=== PATIENT | female | born 1935 | race Asian ===

== ENCOUNTER 2019-12-10 15:19 | Emergency (ER) | payer MEDICAID ==
[~2019-12-10] VITALS: Ht 147.3 cm; Wt 43.1 kg
[2019-12-10 15:41] VITALS: BP_SYST 178
--- NOTE | 2019-12-10 15:44 | NUR ---
Placed in room 1 . Placed on ekg monitor tech, blood pressure machine and pulse oximeter. To gown for exam. Side rails up. Report given to AKASH Sanches.
--- NOTE | 2019-12-10 16:00 | NUR ---
Pt came to ER for SOB in the morning, has hx of CHF, pt VSS, uses 2L O2 at home no distress at this time.
[2019-12-10] MEDS ORDERED: SACU1TAB PO (16:04)
[2019-12-10] MEDS ORDERED: FURO40TA5 PO (16:04)
[2019-12-10] MEDS ORDERED: POTA8CAP20 PO (16:04)
[2019-12-10] MEDS ORDERED: COR6.25 PO (16:04)
[2019-12-10] MEDS ORDERED: RIVA20TA PO (16:04)
--- NOTE | 2019-12-10 16:04 | NUR ---
Medication reconciliation completed with information provided by patient's son. Any prior medication reconciliation on file was reviewed and corrected.
--- NOTE | 2019-12-10 16:10 | NUR ---
ER at bedside examining patient.
[2019-12-10] MEDS ORDERED: FUROSEMIDE 100 MG/10 ML VIAL IVP ONE (16:15)
[2019-12-10 16:23] LABS: BASOPHILS % (AUTO) 0.4 % (0.0-2.0); EOSINOPHILS % (AUTO) 0.7 % (0.0-4.0); LYMPHOCYTES # (AUTO) 1.2 K/uL (1.0-5.5); LYMPHOCYTES % (AUTO) 18.4 % (20.5-51.5); MEAN CORPUSCULAR HEMOGLOBIN 26 pg (27-31); MEAN CORPUSCULAR HGB CONC 33 % (32-36); MEAN CORPUSCULAR VOLUME 79 fL (79.0-98.0); MONOCYTES # (AUTO) 0.5 K/uL (0.0-1.0); MONOCYTES % (AUTO) 7.9 % (1.7-9.3); NEUTROPHILS # (AUTO) 4.9 K/uL (1.8-7.7); NEUTROPHILS % (AUTO) 72.6 % (40.0-70.0); PLATELET COUNT (AUTO) 174 K/uL (130-430); RED BLOOD CELL COUNT(AUTO) 2.35 MIL/uL (4.2-6.2); RED CELL DISTRIBUTION WIDTH 17.7 % (9.0-15.0); WHITE BLOOD COUNT (AUTO) 6.7 K/uL (4.8-10.8)
[2019-12-10 16:32] LABS: HEMATOCRIT 18.7 % (36-48); HEMOGLOBIN 6.1 g/dL (12.0-16.0)
[2019-12-10 16:33] LABS: ANION GAP 4 (5-15); CHLORIDE 102 mmol/L (98-107); CREATININE 0.95 mg/dL (0.55-1.30); GLUCOSE 148 mg/dL (70-99); POTASSIUM 4.3 mmol/L (3.5-5.1); SODIUM SERUM 134 mmol/L (136-145); UREA NITROGEN, BLOOD 26 mg/dL (8-21)
[2019-12-10 16:43] LABS: ALANINE AMINOTRANSFERASE 21 U/L (12-78); ALBUMIN 3.1 g/dL (3.4-4.8); ASPARTATE AMINOTRANSFERASE 21 U/L (10-37); TOTAL BILIRUBIN 0.3 mg/dL (0.0-1.0)
--- NOTE | 2019-12-10 17:00 | NUR ---
Left messages at 2 different numbers on file for pt's family regarding blood transfusion consent.
[2019-12-10 17:09] LABS: INR 1.8 (0.8-1.2); PROTHROMBIN TIME 17.6 SECS (9.5-12.5)
[2019-12-10] MEDS ORDERED: PANTOPRAZOLE SODIUM 40 MG/VIAL (PROTONIX) IVP ONE (17:15)
[2019-12-10 18:00] VITALS: BP_SYST 152
--- NOTE | 2019-12-10 18:47 | NUR ---
Pt resting in [facility], at this time able to transfer to bedside commode
--- NOTE | 2019-12-10 19:30 | NUR ---
received report from AKASH Sanches for continuation of care.
[2019-12-11] MEDS ORDERED: FUROSEMIDE 40 MG/4 ML VIAL IVP SCH (09:00)
--- NOTE | 2019-12-11 18:33 | NUR ---
[employer] P[employer]WORK
== END 2019-12-10 23:40 | disposition short-term general hospital (02) ==
LOC: SED 15:19 → STU 18:30 → UNDOADMIN 18:30 → SED 23:40
DX: D64.9 Anemia, unspecified (principal)
CPT/HCPCS: 36415; 71045; 80053; 83880; 84484; 85025; 85610; 86886; 86900; 86901; 86920; 93005; 96374; 96375; 99291; C9113; J1940; 99285

== ENCOUNTER 2021-12-30 17:52 | Inpatient (IN) | payer MEDICAID ==
[~2021-12-30] VITALS: Ht 154.9 cm; Wt 53.5 kg
[~2021-12-30 17:52] MED LIST: COR6.25 PO; FURO40TA5 PO; POTA8CAP20 PO; RIVA20TA PO; SACU1TAB PO
[2021-12-30 18:09] VITALS: BP_SYST 144
[2021-12-30] MEDS ORDERED: ALBUTEROL SULFATE 0.083% 2.5 MG/3 ML VIAL.NEB INH ONE (18:30)
[2021-12-30] MEDS ORDERED: IPRATROPIUM BROM 0.5 MG/2.5 ML VIAL.NEB (ATROVENT) INH ONE (18:30)
[2021-12-30 18:57] LABS: HEMOGLOBIN 9.3 g/dL (12.0-16.0)
[2021-12-30 19:02] LABS: BILIRUBIN,URINE NEGATIVE (NEGATIVE); BLOOD, URINE NEGATIVE (NEGATIVE); CLARITY/URINE CLEAR (CLEAR); COLOR,URINE YELLOW (YELLOW); GLUCOSE,URINE NEGATIVE (NEGATIVE); KETONES,URINE NEGATIVE (NEGATIVE); LEUKOCYTE ESTERASE ,URINE NEGATIVE (NEGATIVE); NITRITE, URINE NEGATIVE (NEGATIVE); PH,URINE 5.5 (5.0-8.0); PROTEIN URINE 2+ (NEGATIVE); UROBILINOGEN,URINE 0.2 (0.2-1.0)
[2021-12-30 19:04] LABS: HEMATOCRIT 29.3 % (36-48); MEAN CORPUSCULAR HEMOGLOBIN 25 pg (27-31); MEAN CORPUSCULAR HGB CONC 32 % (32-36); MEAN CORPUSCULAR VOLUME 79 fL (79.0-98.0); PLATELET COUNT (AUTO) 197 K/uL (130-430); RED BLOOD CELL COUNT(AUTO) 3.73 MIL/uL (4.2-6.2); RED CELL DISTRIBUTION WIDTH 17.1 % (9.0-15.0); WHITE BLOOD COUNT (AUTO) 14.1 K/uL (4.8-10.8)
[2021-12-30 19:12] LABS: ANION GAP 2 (5-15); CHLORIDE 101 mmol/L (98-107); CREATININE 1.13 mg/dL (0.55-1.30); GLUCOSE 161 mg/dL (70-99); POTASSIUM 4.7 mmol/L (3.5-5.1); UREA NITROGEN, BLOOD 39 mg/dL (8-21)
[2021-12-30] MEDS ORDERED: PIPERACILLIN/TAZO 4.5GM/DEX-IS 100 ML IV SCH (19:15)
[2021-12-30 19:16] LABS: ALANINE AMINOTRANSFERASE 31 U/L (12-78); ALBUMIN 3.3 g/dL (3.4-4.8); ASPARTATE AMINOTRANSFERASE 28 U/L (10-37); TOTAL BILIRUBIN 0.4 mg/dL (0.0-1.0)
[2021-12-30] MEDS ORDERED: PIPERACILLIN/TAZO 4.5GM/DEX-IS 100 ML IV ONE (19:18)
[2021-12-30 19:36] LABS: BACTERIA,URINE FEW /HPF (None Seen); MUCUS,URINE None Seen /LPF (None Seen); RBC,URINE NONE SEEN /HPF (0-3); WBC,URINE NONE SEEN /HPF (0-3)
[2021-12-30 19:38] LABS: ATYPICAL LYMPHOCYTES % 20 % (0-0); BAND % (MANUAL) 2 % (0-6); BASOPHILS % (MANUAL) 0 % (0-2); EOSINOPHILS % (MANUAL) 1 % (0-7); LYMPHOCYTES % (MANUAL) 48 % (20-46); MONOCYTES % (MANUAL) 5 % (0-11)
[2021-12-30] MEDS ORDERED: VANCOMYCIN HCL 1,000 MG in NS 250 ML IV ONE (20:00)
[2021-12-30] MEDS ORDERED: VANCOMYCIN HCL 1000 MG/VIAL IV ONE (20:05)
[2021-12-30] MEDS ORDERED: NEU300 PO (20:40)
[2021-12-30] MEDS ORDERED: DOXY100C PO (20:41)
[2021-12-30] MEDS ORDERED: GUAI-723 PO (20:42)
[2021-12-30] MEDS ORDERED: POTA10TA PO (20:51)
[2021-12-30] MEDS ORDERED: ACET-73 PO (20:52)
[2021-12-30] MEDS ORDERED: AMLO2.5T50 PO (20:53)
[2021-12-30] MEDS ORDERED: LORazepam 2 MG/ML VIAL IVP PRN (21:00)
[2021-12-30 22:00] VITALS: BP_SYST 128
[2021-12-30] MEDS ORDERED: NALOXONE HCL 0.4 MG/ML AMP (NARCAN) IVP PRN (22:15)
[2021-12-30] MEDS ORDERED: MORPHINE 4 MG INJ. 4 MG/ML VIAL IVP PRN (22:15)
[2021-12-30] MEDS ORDERED: MORPHINE 2 MG/ML INJ. SYRINGE IVP PRN (22:15)
[2021-12-30] MEDS ORDERED: ONDANSETRON HCL 4 MG/2 ML VIAL IVP PRN (22:15)
[2021-12-30 22:17] VITALS: BP_SYST 123
[2021-12-30 23:00] VITALS: BP_SYST 124
[2021-12-30] MEDS: D5/0.45 NS 1,000 ML IV SCH (23:06)
[2021-12-30] MEDS: ALBUTEROL SULFATE 0.083% 2.5 MG/3 ML VIAL.NEB INH SCH (23:10)
[2021-12-30] MEDS: IPRATROPIUM BROM 0.5 MG/2.5 ML VIAL.NEB (ATROVENT) INH SCH (23:10)
[2021-12-31] VITALS (15 sets, daily range): BP systolic 114–143
[2021-12-31] MEDS: IPRATROPIUM BROM 0.5 MG/2.5 ML VIAL.NEB (ATROVENT) INH SCH ×6 (02:50→23:59)
[2021-12-31] MEDS: ALBUTEROL SULFATE 0.083% 2.5 MG/3 ML VIAL.NEB INH SCH ×6 (02:50→23:58)
[2021-12-31 07:02] LABS: ANION GAP 2 (5-15); CALCIUM 8.2 mg/dL (8.4-11.0); CHLORIDE 103 mmol/L (98-107); GLUCOSE 142 mg/dL (70-99); PHOSPHORUS 4.3 mg/dL (2.7-4.5); POTASSIUM 4.7 mmol/L (3.5-5.1); UREA NITROGEN, BLOOD 36 mg/dL (8-21)
[2021-12-31 07:05] LABS: BASOPHILS % (AUTO) 0.1 % (0.0-2.0); HEMATOCRIT 27.3 % (36-48); HEMOGLOBIN 8.6 g/dL (12.0-16.0); LYMPHOCYTES # (AUTO) 5.1 K/uL (1.0-5.5); LYMPHOCYTES % (AUTO) 44.8 % (20.5-51.5); MEAN CORPUSCULAR HEMOGLOBIN 26 pg (27-31); MEAN CORPUSCULAR HGB CONC 32 % (32-36); MEAN CORPUSCULAR VOLUME 80 fL (79.0-98.0); MONOCYTES # (AUTO) 1.1 K/uL (0.0-1.0); MONOCYTES % (AUTO) 9.3 % (1.7-9.3); NEUTROPHILS # (AUTO) 5.2 K/uL (1.8-7.7); PLATELET COUNT (AUTO) 183 K/uL (130-430); RED CELL DISTRIBUTION WIDTH 16.9 % (9.0-15.0); WHITE BLOOD COUNT (AUTO) 11.4 K/uL (4.8-10.8)
[2021-12-31 08:12] LABS: NEUTROPHILS % (AUTO) 45.8 % (40.0-70.0)
[2021-12-31] MEDS ORDERED: FUROSEMIDE 40 MG/4 ML VIAL IVP ONE (10:00)
[2021-12-31] MEDS: D5/0.45 NS 1,000 ML IV SCH (17:46)
[2021-12-31] MEDS: FUROSEMIDE 40 MG/4 ML VIAL IVP SCH (20:27)
[2022-01-01 00:14] VITALS: BP_SYST 126
[2022-01-01] MEDS: IPRATROPIUM BROM 0.5 MG/2.5 ML VIAL.NEB (ATROVENT) INH SCH ×6 (04:43→23:27)
[2022-01-01] MEDS: ALBUTEROL SULFATE 0.083% 2.5 MG/3 ML VIAL.NEB INH SCH ×6 (04:43→23:27)
[2022-01-01 08:00] VITALS: BP_SYST 145
[2022-01-01] MEDS: FUROSEMIDE 40 MG/4 ML VIAL IVP SCH ×2 (08:40→21:12)
[2022-01-01 10:32] LABS: ALANINE AMINOTRANSFERASE 28 U/L (12-78); ALBUMIN 2.8 g/dL (3.4-4.8); ANION GAP 4 (5-15); ASPARTATE AMINOTRANSFERASE 29 U/L (10-37); C-REACTIVE PROTEIN QUANT 7.3 mg/dL (0-0.5); CALCIUM 8.4 mg/dL (8.4-11.0); CHLORIDE 99 mmol/L (98-107); CREATININE 1.15 mg/dL (0.55-1.30); GLUCOSE 147 mg/dL (70-99); POTASSIUM 3.4 mmol/L (3.5-5.1); TOTAL BILIRUBIN 0.7 mg/dL (0.0-1.0); UREA NITROGEN, BLOOD 33 mg/dL (8-21)
[2022-01-01 10:43] LABS: BASOPHILS % (AUTO) 0.2 % (0.0-2.0); EOSINOPHILS % (AUTO) 0.4 % (0.0-4.0); HEMATOCRIT 27.6 % (36-48); LYMPHOCYTES % (AUTO) 45.9 % (20.5-51.5); MEAN CORPUSCULAR HEMOGLOBIN 26 pg (27-31); MEAN CORPUSCULAR HGB CONC 33 % (32-36); MEAN CORPUSCULAR VOLUME 78 fL (79.0-98.0); MONOCYTES # (AUTO) 0.7 K/uL (0.0-1.0); MONOCYTES % (AUTO) 8.5 % (1.7-9.3); NEUTROPHILS # (AUTO) 3.9 K/uL (1.8-7.7); PLATELET COUNT (AUTO) 172 K/uL (130-430); RED BLOOD CELL COUNT(AUTO) 3.54 MIL/uL (4.2-6.2); RED CELL DISTRIBUTION WIDTH 16.5 % (9.0-15.0); WHITE BLOOD COUNT (AUTO) 8.7 K/uL (4.8-10.8)
[2022-01-01 12:09] LABS: ERYTHROCYTE SEDIMENTATION RATE 78 MM/HR (0-20)
[2022-01-01 12:24] VITALS: BP_SYST 125
[2022-01-01 16:00] VITALS: BP_SYST 130
[2022-01-01] MEDS: D5/0.45 NS 1,000 ML IV SCH (18:02)
[2022-01-01] MEDS: LEVOFLOXACIN 250 MG/D5W 50 ML IV SCH (18:02)
[2022-01-01 20:00] VITALS: BP_SYST 132
[2022-01-01] MEDS ORDERED: ACETAMINOPHEN 500 MG TABLET PO PRN (22:00)
[2022-01-02] MEDS: ALBUTEROL SULFATE 0.083% 2.5 MG/3 ML VIAL.NEB INH SCH ×5 (03:44→21:10)
[2022-01-02] MEDS: IPRATROPIUM BROM 0.5 MG/2.5 ML VIAL.NEB (ATROVENT) INH SCH ×5 (03:44→21:09)
[2022-01-02 07:04] LABS: BASOPHILS % (AUTO) 0.2 % (0.0-2.0); EOSINOPHILS # (AUTO) 0.1 K/uL (0.0-0.4); EOSINOPHILS % (AUTO) 0.6 % (0.0-4.0); HEMATOCRIT 28.2 % (36-48); HEMOGLOBIN 9.2 g/dL (12.0-16.0); LYMPHOCYTES # (AUTO) 4.1 K/uL (1.0-5.5); LYMPHOCYTES % (AUTO) 46.2 % (20.5-51.5); MEAN CORPUSCULAR HEMOGLOBIN 25 pg (27-31); MEAN CORPUSCULAR HGB CONC 33 % (32-36); MEAN CORPUSCULAR VOLUME 77 fL (79.0-98.0); MONOCYTES # (AUTO) 0.7 K/uL (0.0-1.0); MONOCYTES % (AUTO) 7.8 % (1.7-9.3); NEUTROPHILS # (AUTO) 4.1 K/uL (1.8-7.7); NEUTROPHILS % (AUTO) 45.2 % (40.0-70.0); PLATELET COUNT (AUTO) 177 K/uL (130-430); RED BLOOD CELL COUNT(AUTO) 3.67 MIL/uL (4.2-6.2); RED CELL DISTRIBUTION WIDTH 16.4 % (9.0-15.0)
[2022-01-02 08:00] VITALS: BP_SYST 139
[2022-01-02 08:00] LABS: ANION GAP 4 (5-15); C-REACTIVE PROTEIN QUANT 8.9 mg/dL (0-0.5); CALCIUM 8.3 mg/dL (8.4-11.0); CHLORIDE 97 mmol/L (98-107); CREATININE 1.04 mg/dL (0.55-1.30); GLUCOSE 147 mg/dL (70-99); PHOSPHORUS 2.1 mg/dL (2.7-4.5); UREA NITROGEN, BLOOD 25 mg/dL (8-21)
[2022-01-02 08:38] LABS: POTASSIUM 2.8 mmol/L (3.5-5.1)
[2022-01-02] MEDS ORDERED: FUROSEMIDE 40 MG TABLET PO SCH (09:00)
[2022-01-02 09:15] VITALS: BP_SYST 135
[2022-01-02 09:18] LABS: ERYTHROCYTE SEDIMENTATION RATE 83 MM/HR (0-20)
[2022-01-02] MEDS: RIVAROXABAN 10 MG TABLET PO SCH (10:05)
[2022-01-02] MEDS: POTASSIUM CHLORIDE 10 MEQ TAB.PRT.SR PO SCH (10:06)
[2022-01-02] MEDS: CARVEDILOL 6.25 MG TABLET (COREG) PO SCH ×2 (10:07→21:24)
[2022-01-02] MEDS: amLODIPine BESYLATE 5 MG TABLET PO SCH (10:08)
[2022-01-02] MEDS: guaiFENesin/DEXTROMETHORPHAN 1 EACH TAB.ER.12H PO SCH ×2 (10:09→21:29)
[2022-01-02] MEDS: FUROSEMIDE 40 MG/4 ML VIAL IVP SCH ×2 (10:09→21:24)
[2022-01-02] MEDS: SACUBITRIL/VALSARTAN 24 MG-26 MG 1 TABLET PO SCH ×2 (10:09→21:24)
[2022-01-02] MEDS: D5/0.45 NS 1,000 ML IV SCH (10:15)
[2022-01-02] MEDS ORDERED: POTASSIUM CHLORIDE 40 MEQ in NS 250 ML IV ONE (11:00)
[2022-01-02] MEDS ORDERED: K PHOS 15 MM in NS 250 ML IV ONE (13:00)
[2022-01-02] MEDS: LEVOFLOXACIN 250 MG/D5W 50 ML IV SCH (14:06)
[2022-01-02] MEDS: NORMAL SALINE 5 ML DISP.SYRIN IVF SCH ×2 (14:07→21:30)
[2022-01-02 14:27] VITALS: BP_SYST 121
[2022-01-02 17:06] VITALS: BP_SYST 116
[2022-01-02 20:00] VITALS: BP_SYST 129
[2022-01-02] MEDS: GABAPENTIN 300 MG CAPSULE PO SCH (21:24)
[2022-01-03] MEDS: ALBUTEROL SULFATE 0.083% 2.5 MG/3 ML VIAL.NEB INH SCH ×7 (00:14→23:26)
[2022-01-03] MEDS: IPRATROPIUM BROM 0.5 MG/2.5 ML VIAL.NEB (ATROVENT) INH SCH ×7 (00:15→23:26)
[2022-01-03 01:23] VITALS: BP_SYST 108
[2022-01-03] MEDS: NORMAL SALINE 5 ML DISP.SYRIN IVF SCH ×3 (05:21→22:00)
[2022-01-03 06:57] LABS: ANION GAP 4 (5-15); C-REACTIVE PROTEIN QUANT 9.6 mg/dL (0-0.5); CALCIUM 8.4 mg/dL (8.4-11.0); CHLORIDE 98 mmol/L (98-107); GLUCOSE 130 mg/dL (70-99); POTASSIUM 3.2 mmol/L (3.5-5.1); UREA NITROGEN, BLOOD 29 mg/dL (8-21)
[2022-01-03 07:01] LABS: BASOPHILS % (AUTO) 0.1 % (0.0-2.0); EOSINOPHILS # (AUTO) 0.1 K/uL (0.0-0.4); EOSINOPHILS % (AUTO) 0.9 % (0.0-4.0); HEMATOCRIT 28.4 % (36-48); HEMOGLOBIN 9.6 g/dL (12.0-16.0); LYMPHOCYTES # (AUTO) 4.2 K/uL (1.0-5.5); LYMPHOCYTES % (AUTO) 49.5 % (20.5-51.5); MEAN CORPUSCULAR HEMOGLOBIN 26 pg (27-31); MEAN CORPUSCULAR HGB CONC 34 % (32-36); MEAN CORPUSCULAR VOLUME 77 fL (79.0-98.0); MONOCYTES # (AUTO) 0.6 K/uL (0.0-1.0); MONOCYTES % (AUTO) 7.6 % (1.7-9.3); NEUTROPHILS # (AUTO) 3.6 K/uL (1.8-7.7); NEUTROPHILS % (AUTO) 41.9 % (40.0-70.0); PLATELET COUNT (AUTO) 176 K/uL (130-430); RED BLOOD CELL COUNT(AUTO) 3.67 MIL/uL (4.2-6.2); RED CELL DISTRIBUTION WIDTH 16.7 % (9.0-15.0); WHITE BLOOD COUNT (AUTO) 8.5 K/uL (4.8-10.8)
[2022-01-03 07:50] VITALS: BP_SYST 112
[2022-01-03 08:23] LABS: ERYTHROCYTE SEDIMENTATION RATE 85 MM/HR (0-20)
[2022-01-03] MEDS: FUROSEMIDE 40 MG/4 ML VIAL IVP SCH (08:34)
[2022-01-03] MEDS: RIVAROXABAN 10 MG TABLET PO SCH (08:35)
[2022-01-03] MEDS: amLODIPine BESYLATE 5 MG TABLET PO SCH (08:36)
[2022-01-03] MEDS: SACUBITRIL/VALSARTAN 24 MG-26 MG 1 TABLET PO SCH ×2 (08:38→22:26)
[2022-01-03] MEDS: guaiFENesin/DEXTROMETHORPHAN 1 EACH TAB.ER.12H PO SCH ×2 (08:38→22:27)
[2022-01-03] MEDS: POTASSIUM CHLORIDE 10 MEQ TAB.PRT.SR PO SCH (08:38)
[2022-01-03] MEDS: CARVEDILOL 6.25 MG TABLET (COREG) PO SCH ×2 (08:40→21:00)
[2022-01-03 11:00] VITALS: BP_SYST 119
[2022-01-03] MEDS: LEVOFLOXACIN 250 MG/D5W 50 ML IV SCH (13:58)
[2022-01-03 15:15] VITALS: BP_SYST 128
[2022-01-03 15:20] VITALS: BP_SYST 138
[2022-01-03] MEDS: GABAPENTIN 300 MG CAPSULE PO SCH (22:26)
[2022-01-04 00:59] VITALS: BP_SYST 121
[2022-01-04 04:23] VITALS: BP_SYST 106
[2022-01-04 07:00] VITALS: BP_SYST 107
[2022-01-04] MEDS: IPRATROPIUM BROM 0.5 MG/2.5 ML VIAL.NEB (ATROVENT) INH SCH ×5 (07:14→23:00)
[2022-01-04] MEDS: ALBUTEROL SULFATE 0.083% 2.5 MG/3 ML VIAL.NEB INH SCH ×5 (07:14→23:00)
[2022-01-04 07:32] LABS: BASOPHILS % (AUTO) 0.3 % (0.0-2.0); EOSINOPHILS # (AUTO) 0.1 K/uL (0.0-0.4); EOSINOPHILS % (AUTO) 0.8 % (0.0-4.0); HEMATOCRIT 28.5 % (36-48); HEMOGLOBIN 9.4 g/dL (12.0-16.0); LYMPHOCYTES # (AUTO) 4.8 K/uL (1.0-5.5); LYMPHOCYTES % (AUTO) 47.1 % (20.5-51.5); MEAN CORPUSCULAR HEMOGLOBIN 26 pg (27-31); MEAN CORPUSCULAR HGB CONC 33 % (32-36); MEAN CORPUSCULAR VOLUME 77 fL (79.0-98.0); MONOCYTES # (AUTO) 0.9 K/uL (0.0-1.0); NEUTROPHILS # (AUTO) 4.4 K/uL (1.8-7.7); NEUTROPHILS % (AUTO) 42.8 % (40.0-70.0); PLATELET COUNT (AUTO) 169 K/uL (130-430); RED BLOOD CELL COUNT(AUTO) 3.68 MIL/uL (4.2-6.2); RED CELL DISTRIBUTION WIDTH 16.4 % (9.0-15.0); WHITE BLOOD COUNT (AUTO) 10.2 K/uL (4.8-10.8)
[2022-01-04] MEDS: CARVEDILOL 6.25 MG TABLET (COREG) PO SCH ×2 (08:04→21:20)
[2022-01-04] MEDS: amLODIPine BESYLATE 5 MG TABLET PO SCH (08:05)
[2022-01-04 08:13] LABS: ALANINE AMINOTRANSFERASE 44 U/L (12-78); ALBUMIN 2.5 g/dL (3.4-4.8); ANION GAP 7 (5-15); ASPARTATE AMINOTRANSFERASE 29 U/L (10-37); C-REACTIVE PROTEIN QUANT 9.9 mg/dL (0-0.5); CALCIUM 8.5 mg/dL (8.4-11.0); CHLORIDE 97 mmol/L (98-107); CREATININE 1.37 mg/dL (0.55-1.30); GLUCOSE 132 mg/dL (70-99); POTASSIUM 3.4 mmol/L (3.5-5.1); TOTAL BILIRUBIN 0.6 mg/dL (0.0-1.0); UREA NITROGEN, BLOOD 34 mg/dL (8-21)
[2022-01-04] MEDS: POTASSIUM CHLORIDE 10 MEQ TAB.PRT.SR PO SCH (08:23)
[2022-01-04] MEDS: RIVAROXABAN 10 MG TABLET PO SCH (08:23)
[2022-01-04] MEDS: SACUBITRIL/VALSARTAN 24 MG-26 MG 1 TABLET PO SCH ×2 (08:24→21:21)
[2022-01-04] MEDS: guaiFENesin/DEXTROMETHORPHAN 1 EACH TAB.ER.12H PO SCH ×2 (08:24→21:21)
[2022-01-04] MEDS ORDERED: POTASSIUM CHLORIDE 20 MEQ TAB.PRT.SR PO ONE (10:30)
[2022-01-04 11:32] VITALS: BP_SYST 103
[2022-01-04 12:10] LABS: ERYTHROCYTE SEDIMENTATION RATE 83 MM/HR (0-20)
[2022-01-04] MEDS: LEVOFLOXACIN 250 MG/D5W 50 ML IV SCH (14:32)
[2022-01-04 18:42] VITALS: BP_SYST 105
[2022-01-04 21:15] VITALS: BP_SYST 113
[2022-01-04] MEDS: GABAPENTIN 300 MG CAPSULE PO SCH (21:22)
[2022-01-05] MEDS: ALBUTEROL SULFATE 0.083% 2.5 MG/3 ML VIAL.NEB INH SCH ×5 (03:12→19:37)
[2022-01-05] MEDS: IPRATROPIUM BROM 0.5 MG/2.5 ML VIAL.NEB (ATROVENT) INH SCH ×5 (03:13→19:37)
[2022-01-05 05:21] VITALS: BP_SYST 102
[2022-01-05] MEDS: NORMAL SALINE 5 ML DISP.SYRIN IVF SCH (05:31)
[2022-01-05 06:51] LABS: BASOPHILS % (AUTO) 0.2 % (0.0-2.0); EOSINOPHILS # (AUTO) 0.1 K/uL (0.0-0.4); HEMATOCRIT 26.4 % (36-48); HEMOGLOBIN 8.8 g/dL (12.0-16.0); LYMPHOCYTES # (AUTO) 5.1 K/uL (1.0-5.5); LYMPHOCYTES % (AUTO) 50.5 % (20.5-51.5); MEAN CORPUSCULAR HEMOGLOBIN 26 pg (27-31); MEAN CORPUSCULAR HGB CONC 33 % (32-36); MEAN CORPUSCULAR VOLUME 78 fL (79.0-98.0); MONOCYTES # (AUTO) 0.8 K/uL (0.0-1.0); MONOCYTES % (AUTO) 8.2 % (1.7-9.3); NEUTROPHILS # (AUTO) 4.1 K/uL (1.8-7.7); NEUTROPHILS % (AUTO) 40.1 % (40.0-70.0); PLATELET COUNT (AUTO) 151 K/uL (130-430); RED CELL DISTRIBUTION WIDTH 16.7 % (9.0-15.0); WHITE BLOOD COUNT (AUTO) 10.1 K/uL (4.8-10.8)
[2022-01-05 07:00] VITALS: BP_SYST 112
[2022-01-05 07:43] LABS: ANION GAP 5 (5-15); C-REACTIVE PROTEIN QUANT 8.8 mg/dL (0-0.5); CALCIUM 8.4 mg/dL (8.4-11.0); CHLORIDE 97 mmol/L (98-107); CREATININE 1.82 mg/dL (0.55-1.30); GLUCOSE 140 mg/dL (70-99); POTASSIUM 4.5 mmol/L (3.5-5.1); UREA NITROGEN, BLOOD 52 mg/dL (8-21)
[2022-01-05 08:06] LABS: ERYTHROCYTE SEDIMENTATION RATE 34 MM/HR (0-20)
[2022-01-05] MEDS: amLODIPine BESYLATE 5 MG TABLET PO SCH (08:08)
[2022-01-05] MEDS: CARVEDILOL 6.25 MG TABLET (COREG) PO SCH ×2 (08:08→20:58)
[2022-01-05] MEDS: SACUBITRIL/VALSARTAN 24 MG-26 MG 1 TABLET PO SCH ×2 (08:53→20:58)
[2022-01-05] MEDS: guaiFENesin/DEXTROMETHORPHAN 1 EACH TAB.ER.12H PO SCH ×2 (08:53→20:59)
[2022-01-05] MEDS: POTASSIUM CHLORIDE 10 MEQ TAB.PRT.SR PO SCH (08:53)
[2022-01-05] MEDS: RIVAROXABAN 10 MG TABLET PO SCH (08:54)
[2022-01-05] MEDS ORDERED: [UNRECOGNIZED DRUG - CODE] IV (10:46)
[2022-01-05 12:48] VITALS: BP_SYST 102
[2022-01-05] MEDS: LEVOFLOXACIN 250 MG/D5W 50 ML IV SCH (16:01)
[2022-01-05 18:17] VITALS: BP_SYST 115
[2022-01-05 19:22] VITALS: BP_SYST 115
[2022-01-05 20:19] VITALS: BP_SYST 96
== END 2022-01-05 20:30 | disposition short-term general hospital (02) | DRG 720 ==
LOC: SED 17:52 → SIC 19:47 → STU 12-31 14:21
PROVIDERS: ADMIT Preventive Medicine Preventive Medicine/Occupational Environmental Medicine; ATTEND Preventive Medicine Preventive Medicine/Occupational Environmental Medicine
PROC: 0T9B70Z Drainage of Bladder with Drainage Device, Via Natural or Artificial Opening (ICD-10-PCS; principal; 2021-12-30)
DX: A41.9 Sepsis, unspecified organism (principal); J96.01 Acute respiratory failure with hypoxia; J18.9 Pneumonia, unspecified organism; I13.0 Hypertensive heart and chronic kidney disease with heart failure and stage 1 through stage 4 chronic kidney disease, or unspecified chronic kidney disease; N17.9 Acute kidney failure, unspecified; I50.9 Heart failure, unspecified; E88.09 Other disorders of plasma-protein metabolism, not elsewhere classified; E83.39 Other disorders of phosphorus metabolism; I48.20 Chronic atrial fibrillation, unspecified; Z20.822 Contact with and (suspected) exposure to COVID-19; D64.9 Anemia, unspecified; R73.9 Hyperglycemia, unspecified; I25.10 Atherosclerotic heart disease of native coronary artery without angina pectoris; N18.9 Chronic kidney disease, unspecified; E83.52 Hypercalcemia; R13.10 Dysphagia, unspecified; E87.6 Hypokalemia; Z88.0 Allergy status to penicillin; Z88.6 Allergy status to analgesic agent; Z79.2 Long term (current) use of antibiotics; Z95.0 Presence of cardiac pacemaker; Z95.2 Presence of prosthetic heart valve; Z79.01 Long term (current) use of anticoagulants
CPT/HCPCS: 36415; 36600; 71045; 80048; 80053; 81000; 82803-TC; 83605; 83735; 83880; 84100; 84484; 85007; 85025; 85027; 85379; 85651-TC; 86140; 87040; 87081; 92610-GN; 93005; 93306; 93970; 94640; 94760; 96365; 96367; 97116-GP; 97163-GP; 97530-GP; 99291; G0378; J1940; J1956; J2060; J2543; J3370; J3480; J7050; J7613

== ENCOUNTER 2022-10-31 23:01 | Inpatient (IN) | payer MEDICAID ==
[~2022-10-31] VITALS: Ht 157.5 cm; Wt 51.7 kg
[~2022-10-31 23:01] MED LIST changes: +ACET-73 PO; +AMLO2.5T50 PO; +GUAI-723 PO; +NEU300 PO; +POTA10TA PO; -POTA8CAP20 PO; +[UNRECOGNIZED DRUG - CODE] IV
[2022-10-31 23:07] VITALS: BP_SYST 158; PULSE 70; RESP 28; O2SAT 88
[2022-10-31] MEDS ORDERED: ONDANSETRON HCL 4 MG/2 ML VIAL ONE (23:24)
[2022-10-31] MEDS ORDERED: ONDANSETRON HCL 4 MG/2 ML VIAL IVP ONE (23:30)
[2022-10-31] MEDS ORDERED: MORPHINE 4 MG INJ. 4 MG/ML VIAL IVP ONE (23:30)
[2022-10-31 23:42] LABS: BASOPHILS % (AUTO) 0.2 % (0.0-2.0)
[2022-10-31 23:52] LABS: EOSINOPHILS % (AUTO) 0.2 % (0.0-4.0); HEMATOCRIT 30.2 % (36-48); HEMOGLOBIN 9.1 g/dL (12.0-16.0); LYMPHOCYTES # (AUTO) 10.9 K/uL (1.0-5.5); LYMPHOCYTES % (AUTO) 57.2 % (20.5-51.5); MEAN CORPUSCULAR HEMOGLOBIN 23 pg (27-31); MEAN CORPUSCULAR HGB CONC 30 % (32-36); MEAN CORPUSCULAR VOLUME 75 fL (79.0-98.0); MONOCYTES # (AUTO) 0.7 K/uL (0.0-1.0); MONOCYTES % (AUTO) 3.8 % (1.7-9.3); NEUTROPHILS # (AUTO) 7.4 K/uL (1.8-7.7); NEUTROPHILS % (AUTO) 38.6 % (40.0-70.0); PLATELET COUNT (AUTO) 194 K/uL (130-430); RED BLOOD CELL COUNT(AUTO) 4.01 MIL/uL (4.2-6.2); RED CELL DISTRIBUTION WIDTH 18.1 % (9.0-15.0); WHITE BLOOD COUNT (AUTO) 19.1 K/uL (4.8-10.8)
[2022-11-01] VITALS (8 sets, daily range): BP systolic 87–114; PULSE 60–73; RESP 17–20; TEMP 98–98.8; O2SAT 93–100
[2022-11-01 00:03] LABS: ALANINE AMINOTRANSFERASE 12 U/L (12-78); ALBUMIN 3.4 g/dL (3.4-4.8); ANION GAP 7 (5-15); ASPARTATE AMINOTRANSFERASE 22 U/L (10-37); CALCIUM 8.8 mg/dL (8.4-11.0); CARBON DIOXIDE 32 mmol/L (23-29); CHLORIDE 100 mmol/L (98-107); CREATININE 1.02 mg/dL (0.55-1.30); GLUCOSE 221 mg/dL (74-106); POTASSIUM 4.4 mmol/L (3.5-5.1); SODIUM SERUM 139 mmol/L (136-145); TOTAL BILIRUBIN 0.5 mg/dL (0.0-1.0); TOTAL PROTEIN, SERUM 7.6 g/dL (6.4-8.3); UREA NITROGEN, BLOOD 29 mg/dL (8-21)
[2022-11-01 00:11] LABS: COVID19 ANTIGEN SOFIA FIA NEGATIVE (NEGATIVE)
[2022-11-01] MEDS ORDERED: cefTRIAXone 1 GM in D5W 50 ML IV ONE (00:15)
[2022-11-01] MEDS ORDERED: AZITHROMYCIN 500 MG in NS 250 ML IV ONE (00:15)
[2022-11-01 00:27] LABS: INFLUENZA TYPE A negative (NEGATIVE); INFLUENZA TYPE B NEGATIVE (NEGATIVE)
[2022-11-01] MEDS ORDERED: cefTRIAXone 1 GM VIAL ONE (00:48)
[2022-11-01] MEDS ORDERED: AZITHROMYCIN 500 MG/VIAL (ZITHROMAX) IV ONE (01:41)
[2022-11-01] MEDS ORDERED: MELATONIN 3 MG TABLET PO ONE (02:00)
[2022-11-01] MEDS ORDERED: LORazepam 2 MG/ML VIAL IVP ONE (02:15)
[2022-11-01] MEDS ORDERED: ACETAMINOPHEN 500 MG TABLET PO ONE (08:15)
[2022-11-01] MEDS ORDERED: ACETAMINOPHEN 650 MG SUPP.RECT RC ONE (08:30)
[2022-11-01] MEDS ORDERED: ONDANSETRON HCL 4 MG/2 ML VIAL IVP PRN (11:00)
[2022-11-01] MEDS ORDERED: LORazepam 2 MG/ML VIAL IVP PRN (11:00)
[2022-11-01] MEDS: IPRATROPIUM/ALBUTEROL SULFATE 3 ML AMPUL.NEB (DUONEB) INH SCH ×4 (11:07→23:18)
[2022-11-01] MEDS: ACETYLCYSTEINE 20% 4 ML VIAL (RT) INH SCH ×3 (11:15→20:06)
[2022-11-01] MEDS ORDERED: POTASSIUM CHLORIDE 10 MEQ TAB.PRT.SR PO ONE (11:30)
[2022-11-01] MEDS ORDERED: FUROSEMIDE 20 MG TABLET PO ONE (11:30)
[2022-11-01] MEDS ORDERED: ACETYLCYSTEINE 20% 4 ML VIAL (RT) INH SCH (11:30)
[2022-11-01] MEDS ORDERED: amLODIPine BESYLATE 5 MG TABLET PO ONE (11:30)
[2022-11-01] MEDS ORDERED: RIVAROXABAN 20 MG TABLET PO SCH (18:00)
[2022-11-01] MEDS: RIVAROXABAN 10 MG TABLET PO SCH (18:00)
[2022-11-01] MEDS: CARVEDILOL 6.25 MG TABLET (COREG) PO SCH (20:43)
[2022-11-01] MEDS: SACUBITRIL/VALSARTAN 24 MG-26 MG 1 TABLET PO SCH (20:44)
[2022-11-01] MEDS: GABAPENTIN 300 MG CAPSULE PO SCH (20:44)
[2022-11-01] MEDS: cefTRIAXone 1 GM in D5W 50 ML IV SCH (20:55)
[2022-11-01] MEDS: AZITHROMYCIN 500 MG in NS 250 ML IV SCH (20:59)
[2022-11-01] MEDS ORDERED: guaiFENesin/DEXTROMETHORPHAN 1 EACH TAB.ER.12H PO SCH (21:00)
[2022-11-01] MEDS: D5/0.45 NS 1,000 ML IV SCH (21:03)
[2022-11-02] VITALS (12 sets, daily range): BP systolic 103–140; PULSE 60–70; RESP 16–28; TEMP 97.3–99.7; O2SAT 91–100
[2022-11-02] MEDS: IPRATROPIUM/ALBUTEROL SULFATE 3 ML AMPUL.NEB (DUONEB) INH SCH ×6 (03:00→23:30)
[2022-11-02 04:24] LABS: BASOPHILS % (AUTO) 0.2 % (0.0-2.0); EOSINOPHILS % (AUTO) 0.1 % (0.0-4.0); HEMATOCRIT 26.5 % (36-48); HEMOGLOBIN 8.1 g/dL (12.0-16.0); LYMPHOCYTES # (AUTO) 5.1 K/uL (1.0-5.5); LYMPHOCYTES % (AUTO) 40.5 % (20.5-51.5); MEAN CORPUSCULAR HEMOGLOBIN 23 pg (27-31); MEAN CORPUSCULAR HGB CONC 30 % (32-36); MEAN CORPUSCULAR VOLUME 76 fL (79.0-98.0); MONOCYTES # (AUTO) 0.7 K/uL (0.0-1.0); MONOCYTES % (AUTO) 5.5 % (1.7-9.3); NEUTROPHILS # (AUTO) 6.8 K/uL (1.8-7.7); NEUTROPHILS % (AUTO) 53.7 % (40.0-70.0); PLATELET COUNT (AUTO) 162 K/uL (130-430); RED BLOOD CELL COUNT(AUTO) 3.49 MIL/uL (4.2-6.2); RED CELL DISTRIBUTION WIDTH 17.9 % (9.0-15.0); WHITE BLOOD COUNT (AUTO) 12.6 K/uL (4.8-10.8)
[2022-11-02 05:03] LABS: ANION GAP 4 (5-15); CALCIUM 8.2 mg/dL (8.4-11.0); CARBON DIOXIDE 31 mmol/L (23-29); CHLORIDE 101 mmol/L (98-107); CREATININE 1.61 mg/dL (0.55-1.30); GLUCOSE 142 mg/dL (74-106); POTASSIUM 4.4 mmol/L (3.5-5.1); SODIUM SERUM 136 mmol/L (136-145); UREA NITROGEN, BLOOD 44 mg/dL (8-21)
[2022-11-02] MEDS: D5/0.45 NS 1,000 ML IV SCH ×3 (05:47→14:45)
[2022-11-02] MEDS: ACETYLCYSTEINE 20% 4 ML VIAL (RT) INH SCH ×4 (07:11→19:57)
[2022-11-02] MEDS: POTASSIUM CHLORIDE 10 MEQ TAB.PRT.SR PO SCH (08:16)
[2022-11-02] MEDS: SACUBITRIL/VALSARTAN 24 MG-26 MG 1 TABLET PO SCH ×2 (08:16→21:32)
[2022-11-02] MEDS: FUROSEMIDE 20 MG TABLET PO SCH (08:16)
[2022-11-02] MEDS: amLODIPine BESYLATE 5 MG TABLET PO SCH (08:17)
[2022-11-02] MEDS: CARVEDILOL 6.25 MG TABLET (COREG) PO SCH ×2 (08:17→21:32)
[2022-11-02] MEDS: RIVAROXABAN 10 MG TABLET PO SCH (17:10)
[2022-11-02] MEDS: cefTRIAXone 1 GM in D5W 50 ML IV SCH (21:23)
[2022-11-02] MEDS: GABAPENTIN 300 MG CAPSULE PO SCH (21:32)
[2022-11-02] MEDS: AZITHROMYCIN 500 MG in NS 250 ML IV SCH (22:00)
[2022-11-03] VITALS (8 sets, daily range): BP systolic 106–116; PULSE 60–76; RESP 16–21; TEMP 97–98.4; O2SAT 87–100
[2022-11-03] MEDS: D5/0.45 NS 1,000 ML IV SCH ×2 (00:33→11:12)
[2022-11-03] MEDS: IPRATROPIUM/ALBUTEROL SULFATE 3 ML AMPUL.NEB (DUONEB) INH SCH ×4 (03:00→15:29)
[2022-11-03] MEDS: ACETYLCYSTEINE 20% 4 ML VIAL (RT) INH SCH ×3 (07:09→15:29)
[2022-11-03 07:34] LABS: MEAN CORPUSCULAR HEMOGLOBIN 24 pg (27-31); MEAN CORPUSCULAR HGB CONC 31 % (32-36); MEAN CORPUSCULAR VOLUME 75 fL (79.0-98.0); PLATELET COUNT (AUTO) 148 K/uL (130-430); RED BLOOD CELL COUNT(AUTO) 2.92 MIL/uL (4.2-6.2); RED CELL DISTRIBUTION WIDTH 17.9 % (9.0-15.0); WHITE BLOOD COUNT (AUTO) 8.9 K/uL (4.8-10.8)
[2022-11-03 08:07] LABS: HEMOGLOBIN 6.9 g/dL (12.0-16.0)
[2022-11-03 08:24] LABS: ERYTHROCYTE SEDIMENTATION RATE 44 MM/HR (0-20)
[2022-11-03 08:46] LABS: ALANINE AMINOTRANSFERASE 8 U/L (12-78); ALBUMIN 2.4 g/dL (3.4-4.8); ANION GAP 1 (5-15); ASPARTATE AMINOTRANSFERASE 20 U/L (10-37); CALCIUM 7.7 mg/dL (8.4-11.0); CARBON DIOXIDE 32 mmol/L (23-29); CHLORIDE 101 mmol/L (98-107); CREATININE 1.17 mg/dL (0.55-1.30); GLUCOSE 139 mg/dL (74-106); PHOSPHORUS 2.9 mg/dL (2.7-4.5); SODIUM SERUM 134 mmol/L (136-145); TOTAL BILIRUBIN 0.3 mg/dL (0.0-1.0); TOTAL PROTEIN, SERUM 5.8 g/dL (6.4-8.3); UREA NITROGEN, BLOOD 39 mg/dL (8-21)
[2022-11-03] MEDS: FUROSEMIDE 20 MG TABLET PO SCH (11:02)
[2022-11-03] MEDS: POTASSIUM CHLORIDE 10 MEQ TAB.PRT.SR PO SCH (11:02)
[2022-11-03] MEDS: CARVEDILOL 6.25 MG TABLET (COREG) PO SCH (11:03)
[2022-11-03] MEDS: amLODIPine BESYLATE 5 MG TABLET PO SCH (11:04)
[2022-11-03] MEDS: SACUBITRIL/VALSARTAN 24 MG-26 MG 1 TABLET PO SCH (11:04)
[2022-11-03 12:15] LABS: ATYPICAL LYMPHOCYTES % 34 % (0-0); BAND % (MANUAL) 2 % (0-6); BASOPHILS % (MANUAL) 0 % (0-2); EOSINOPHILS % (MANUAL) 0 % (0-7); LYMPHOCYTES % (MANUAL) 22 % (20-46); MONOCYTES % (MANUAL) 3 % (0-11)
[2022-11-03 12:16] LABS: ANISOCYTOSIS 1+; HYPOCHROMASIA 1+; PLATELET ESTIMATE ADEQUATE (ADEQUATE)
== END 2022-11-03 18:15 | disposition short-term general hospital (02) | DRG 720 ==
LOC: SED 23:01 → STU 11-01 07:51
PROVIDERS: ADMIT Preventive Medicine Preventive Medicine/Occupational Environmental Medicine; ATTEND Preventive Medicine Preventive Medicine/Occupational Environmental Medicine
DX: A41.9 Sepsis, unspecified organism (principal); J96.21 Acute and chronic respiratory failure with hypoxia; I21.A1 Myocardial infarction type 2; I27.21 Secondary pulmonary arterial hypertension; I13.0 Hypertensive heart and chronic kidney disease with heart failure and stage 1 through stage 4 chronic kidney disease, or unspecified chronic kidney disease; E44.1 Mild protein-calorie malnutrition; I42.9 Cardiomyopathy, unspecified; E83.51 Hypocalcemia; J18.9 Pneumonia, unspecified organism; I50.9 Heart failure, unspecified; E83.52 Hypercalcemia; E78.5 Hyperlipidemia, unspecified; D50.9 Iron deficiency anemia, unspecified; I08.3 Combined rheumatic disorders of mitral, aortic and tricuspid valves; I25.10 Atherosclerotic heart disease of native coronary artery without angina pectoris; Z20.822 Contact with and (suspected) exposure to COVID-19; N18.9 Chronic kidney disease, unspecified; N17.9 Acute kidney failure, unspecified; D64.9 Anemia, unspecified; Z95.2 Presence of prosthetic heart valve; Z95.0 Presence of cardiac pacemaker; Z88.6 Allergy status to analgesic agent; Z88.0 Allergy status to penicillin; Z79.899 Other long term (current) drug therapy; Z79.84 Long term (current) use of oral hypoglycemic drugs; Z68.20 Body mass index [BMI] 20.0-20.9, adult
CPT/HCPCS: 36415; 71045; 71275; 76376; 76770; 80048; 80053; 83605; 83735; 83880; 84100; 84484; 85007; 85025; 85027; 85651-TC; 86870; 86886; 86900; 86901; 87040; 92610-GN; 93005; 93306; 94640; 94760; 96365; 96368; 96375; 99291; G0378; J0456; J0696; J2060; J2270; J2405; J7050; J7060; J7608; Q9967

== ENCOUNTER 2023-07-08 18:54 | Inpatient (IN) | payer MEDICAID ==
[~2023-07-08] VITALS: Ht 162.6 cm; Wt 55.5 kg
[~2023-07-08 18:54] MED LIST changes: -GUAI-723 PO; +POTA-217 PO; -POTA10TA PO; -[UNRECOGNIZED DRUG - CODE] IV
[2023-07-08 19:00] VITALS: BP_SYST 107; PULSE 70; RESP 20; TEMP 97.9; O2SAT 98
[2023-07-08 19:42] LABS: BASOPHILS % (AUTO) 0.2 % (0.0-2.0); EOSINOPHILS # (AUTO) 0.1 K/uL (0.0-0.4); EOSINOPHILS % (AUTO) 1.1 % (0.0-4.0); HEMATOCRIT 26.7 % (36-48); HEMOGLOBIN 8.5 g/dL (12.0-16.0); LYMPHOCYTES # (AUTO) 2.7 K/uL (1.0-5.5); LYMPHOCYTES % (AUTO) 39.8 % (20.5-51.5); MEAN CORPUSCULAR HEMOGLOBIN 25 pg (27-31); MEAN CORPUSCULAR HGB CONC 32 % (32-36); MEAN CORPUSCULAR VOLUME 78 fL (79.0-98.0); MONOCYTES # (AUTO) 0.5 K/uL (0.0-1.0); MONOCYTES % (AUTO) 7.8 % (1.7-9.3); NEUTROPHILS # (AUTO) 3.4 K/uL (1.8-7.7); NEUTROPHILS % (AUTO) 51.1 % (40.0-70.0); PLATELET COUNT (AUTO) 138 K/uL (130-430); RED BLOOD CELL COUNT(AUTO) 3.44 MIL/uL (4.2-6.2); RED CELL DISTRIBUTION WIDTH 18.7 % (9.0-15.0); WHITE BLOOD COUNT (AUTO) 6.7 K/uL (4.8-10.8)
[2023-07-08] MEDS ORDERED: SACU1TAB PO (19:48)
[2023-07-08] MEDS ORDERED: CARV6.2554 PO (19:48)
[2023-07-08] MEDS ORDERED: RIVA15TA PO (19:48)
[2023-07-08] MEDS ORDERED: POTA8TAB66 PO (19:48)
[2023-07-08 19:58] LABS: ANION GAP 5 (5-15); CALCIUM 8.7 mg/dL (8.4-11.0); CARBON DIOXIDE 36 mmol/L (23-29); CHLORIDE 101 mmol/L (98-107); CREATININE 1.07 mg/dL (0.55-1.30); GLUCOSE 116 mg/dL (74-106); POTASSIUM 4.6 mmol/L (3.5-5.1); SODIUM SERUM 142 mmol/L (136-145); UREA NITROGEN, BLOOD 59 mg/dL (8-21)
[2023-07-08 20:44] LABS: COVID19 ANTIGEN SOFIA FIA NEGATIVE (NEGATIVE)
[2023-07-08 20:49] LABS: INFLUENZA TYPE A Negative (NEGATIVE); INFLUENZA TYPE B NEGATIVE (NEGATIVE)
[2023-07-08 21:14] LABS: INR 2.8 (0.8-1.2); PROTHROMBIN TIME 27.3 SECS (9.5-12.5)
[2023-07-08] MEDS: FUROSEMIDE 40 MG/4 ML VIAL IVP ONE (21:14)
[2023-07-09] VITALS (7 sets, daily range): BP systolic 108–125; PULSE 60–70; RESP 16–18; TEMP 96.5–98.2; O2SAT 92–96
[2023-07-09] MEDS ORDERED: HYDROcodone/ACETAMIN 5-325 MG TAB (NORCO/ VICODIN) PO PRN (07:45)
[2023-07-09] MEDS ORDERED: HYDROcodone/ACETAMIN 10-325 MG TAB PO PRN (07:45)
[2023-07-09] MEDS ORDERED: NALOXONE HCL 0.4 MG/ML AMP (NARCAN) IVP PRN ×2 (07:45)
[2023-07-09] MEDS ORDERED: ACETAMINOPHEN 325 MG TABLET PO PRN ×2 (07:45→09:00)
[2023-07-09] MEDS ORDERED: LORazepam 2 MG/ML VIAL IVP PRN (07:45)
[2023-07-09] MEDS ORDERED: ONDANSETRON HCL 4 MG/2 ML VIAL IVP PRN (07:45)
[2023-07-09 08:54] LABS: BASOPHILS % (AUTO) 0.2 % (0.0-2.0); EOSINOPHILS # (AUTO) 0.1 K/uL (0.0-0.4); EOSINOPHILS % (AUTO) 1.6 % (0.0-4.0); HEMOGLOBIN 8.3 g/dL (12.0-16.0); LYMPHOCYTES % (AUTO) 48.3 % (20.5-51.5); MEAN CORPUSCULAR HEMOGLOBIN 25 pg (27-31); MEAN CORPUSCULAR HGB CONC 32 % (32-36); MEAN CORPUSCULAR VOLUME 78 fL (79.0-98.0); MONOCYTES # (AUTO) 0.5 K/uL (0.0-1.0); NEUTROPHILS # (AUTO) 2.6 K/uL (1.8-7.7); NEUTROPHILS % (AUTO) 41.9 % (40.0-70.0); PLATELET COUNT (AUTO) 133 K/uL (130-430); RED BLOOD CELL COUNT(AUTO) 3.34 MIL/uL (4.2-6.2); RED CELL DISTRIBUTION WIDTH 18.8 % (9.0-15.0); WHITE BLOOD COUNT (AUTO) 6.1 K/uL (4.8-10.8)
[2023-07-09 09:00] LABS: ANION GAP 3 (5-15); CALCIUM 8.5 mg/dL (8.4-11.0); CHLORIDE 103 mmol/L (98-107); CREATININE 0.93 mg/dL (0.55-1.30); GLUCOSE 112 mg/dL (74-106); POTASSIUM 3.8 mmol/L (3.5-5.1); SODIUM SERUM 147 mmol/L (136-145); UREA NITROGEN, BLOOD 50 mg/dL (8-21)
[2023-07-09] MEDS ORDERED: RIVAROXABAN 15 MG TABLET PO SCH (09:00)
[2023-07-09] MEDS: SACUBITRIL/VALSARTAN 24 MG-26 MG 1 TABLET PO SCH ×2 (09:00→20:58)
[2023-07-09 09:10] LABS: CARBON DIOXIDE 41 mmol/L (23-29)
[2023-07-09] MEDS ORDERED: IPRATROPIUM BROM 0.5 MG/2.5 ML VIAL.NEB (ATROVENT) INH PRN (10:00)
[2023-07-09] MEDS ORDERED: ALBUTEROL SULFATE 0.083% 2.5 MG/3 ML VIAL.NEB INH PRN (10:00)
[2023-07-09] MEDS: POTASSIUM CHLORIDE 8 MEQ TABLET.ER PO SCH (10:12)
[2023-07-09] MEDS: CARVEDILOL 6.25 MG TABLET (COREG) PO SCH (10:13)
[2023-07-09] MEDS: FUROSEMIDE 40 MG TABLET PO SCH (10:13)
[2023-07-09] MEDS: FUROSEMIDE 20 MG/2 ML VIAL IVP ONE (11:47)
[2023-07-09] MEDS: NORMAL SALINE 5 ML DISP.SYRIN IVF SCH (14:00)
[2023-07-09] MEDS: RIVAROXABAN 10 MG TABLET PO SCH (18:00)
[2023-07-10] VITALS (7 sets, daily range): BP systolic 110–140; PULSE 60–73; RESP 16–18; TEMP 97.3–98.4; O2SAT 95–98
[2023-07-10 08:03] LABS: BASOPHILS % (AUTO) 0.2 % (0.0-2.0); EOSINOPHILS # (AUTO) 0.1 K/uL (0.0-0.4); EOSINOPHILS % (AUTO) 1.5 % (0.0-4.0); HEMATOCRIT 24.8 % (36-48); LYMPHOCYTES # (AUTO) 2.5 K/uL (1.0-5.5); LYMPHOCYTES % (AUTO) 43.7 % (20.5-51.5); MEAN CORPUSCULAR HEMOGLOBIN 25 pg (27-31); MEAN CORPUSCULAR HGB CONC 32 % (32-36); MEAN CORPUSCULAR VOLUME 78 fL (79.0-98.0); MONOCYTES # (AUTO) 0.5 K/uL (0.0-1.0); MONOCYTES % (AUTO) 8.1 % (1.7-9.3); NEUTROPHILS # (AUTO) 2.6 K/uL (1.8-7.7); NEUTROPHILS % (AUTO) 46.5 % (40.0-70.0); PLATELET COUNT (AUTO) 129 K/uL (130-430); RED BLOOD CELL COUNT(AUTO) 3.18 MIL/uL (4.2-6.2); RED CELL DISTRIBUTION WIDTH 18.6 % (9.0-15.0); WHITE BLOOD COUNT (AUTO) 5.6 K/uL (4.8-10.8)
[2023-07-10 08:22] LABS: ANION GAP 6 (5-15); CALCIUM 8.4 mg/dL (8.4-11.0); CARBON DIOXIDE 34 mmol/L (23-29); CHLORIDE 102 mmol/L (98-107); CREATININE 0.84 mg/dL (0.55-1.30); GLUCOSE 127 mg/dL (74-106); POTASSIUM 3.3 mmol/L (3.5-5.1); SODIUM SERUM 142 mmol/L (136-145); UREA NITROGEN, BLOOD 35 mg/dL (8-21)
[2023-07-10] MEDS: FUROSEMIDE 40 MG/4 ML VIAL IVP SCH (09:31)
[2023-07-10] MEDS ORDERED: IPRATROPIUM/ALBUTEROL SULFATE 3 ML AMPUL.NEB (DUONEB) INH PRN (18:30)
[2023-07-11] VITALS (8 sets, daily range): BP systolic 90–110; PULSE 58–89; RESP 16–18; TEMP 96.5–97.6; O2SAT 93–100
[2023-07-11 06:41] LABS: BASOPHILS % (AUTO) 0.4 % (0.0-2.0); EOSINOPHILS # (AUTO) 0.1 K/uL (0.0-0.4); EOSINOPHILS % (AUTO) 1.8 % (0.0-4.0); HEMATOCRIT 26.3 % (36-48); HEMOGLOBIN 8.4 g/dL (12.0-16.0); LYMPHOCYTES # (AUTO) 2.2 K/uL (1.0-5.5); MEAN CORPUSCULAR HEMOGLOBIN 25 pg (27-31); MEAN CORPUSCULAR HGB CONC 32 % (32-36); MEAN CORPUSCULAR VOLUME 79 fL (79.0-98.0); MONOCYTES # (AUTO) 0.3 K/uL (0.0-1.0); MONOCYTES % (AUTO) 7.1 % (1.7-9.3); NEUTROPHILS # (AUTO) 2.2 K/uL (1.8-7.7); NEUTROPHILS % (AUTO) 45.7 % (40.0-70.0); PLATELET COUNT (AUTO) 132 K/uL (130-430); RED BLOOD CELL COUNT(AUTO) 3.35 MIL/uL (4.2-6.2); RED CELL DISTRIBUTION WIDTH 18.9 % (9.0-15.0); WHITE BLOOD COUNT (AUTO) 4.9 K/uL (4.8-10.8)
[2023-07-11 07:03] LABS: ALANINE AMINOTRANSFERASE 20 U/L (12-78); ALBUMIN 2.8 g/dL (3.4-4.8); ANION GAP 4 (5-15); ASPARTATE AMINOTRANSFERASE 20 U/L (10-37); CALCIUM 8.5 mg/dL (8.4-11.0); CARBON DIOXIDE 33 mmol/L (23-29); CHLORIDE 102 mmol/L (98-107); CREATININE 0.87 mg/dL (0.55-1.30); GLUCOSE 115 mg/dL (74-106); PHOSPHORUS 4.2 mg/dL (2.7-4.5); POTASSIUM 3.5 mmol/L (3.5-5.1); SODIUM SERUM 139 mmol/L (136-145); TOTAL BILIRUBIN 0.6 mg/dL (0.0-1.0); TOTAL PROTEIN, SERUM 6.7 g/dL (6.4-8.3); UREA NITROGEN, BLOOD 30 mg/dL (8-21)
[2023-07-11] MEDS: MIDODRINE HCL 5 MG TABLET (PROAMATINE) PO SCH (15:51)
[2023-07-12] VITALS (7 sets, daily range): BP systolic 132–136; PULSE 60–84; RESP 16–18; TEMP 96.7–98.2; O2SAT 96–99
[2023-07-12 04:20] LABS: ERYTHROCYTE SEDIMENTATION RATE 36 MM/HR (0-20)
[2023-07-12 05:02] LABS: BASOPHILS % (AUTO) 0.4 % (0.0-2.0); EOSINOPHILS # (AUTO) 0.1 K/uL (0.0-0.4); EOSINOPHILS % (AUTO) 1.4 % (0.0-4.0); HEMATOCRIT 27.8 % (36-48); LYMPHOCYTES # (AUTO) 2.7 K/uL (1.0-5.5); MEAN CORPUSCULAR HEMOGLOBIN 25 pg (27-31); MEAN CORPUSCULAR HGB CONC 32 % (32-36); MEAN CORPUSCULAR VOLUME 78 fL (79.0-98.0); MONOCYTES # (AUTO) 0.5 K/uL (0.0-1.0); MONOCYTES % (AUTO) 7.8 % (1.7-9.3); NEUTROPHILS # (AUTO) 3.1 K/uL (1.8-7.7); NEUTROPHILS % (AUTO) 48.4 % (40.0-70.0); PLATELET COUNT (AUTO) 141 K/uL (130-430); RED BLOOD CELL COUNT(AUTO) 3.55 MIL/uL (4.2-6.2); RED CELL DISTRIBUTION WIDTH 17.7 % (9.0-15.0); WHITE BLOOD COUNT (AUTO) 6.5 K/uL (4.8-10.8)
[2023-07-12 05:16] LABS: ANION GAP 5 (5-15); CALCIUM 8.3 mg/dL (8.4-11.0); CARBON DIOXIDE 31 mmol/L (23-29); CHLORIDE 102 mmol/L (98-107); CREATININE 1.01 mg/dL (0.55-1.30); GLUCOSE 103 mg/dL (74-106); POTASSIUM 3.3 mmol/L (3.5-5.1); SODIUM SERUM 138 mmol/L (136-145); UREA NITROGEN, BLOOD 31 mg/dL (8-21)
[2023-07-12] MEDS: FUROSEMIDE 40 MG TABLET PO SCH (09:15)
[2023-07-12] MEDS: LEVOFLOXACIN 250 MG/D5W 50 ML IV SCH (09:18)
[2023-07-12] MEDS ORDERED: LEVO250T73 PO (16:59)
[2023-07-12] MEDS ORDERED: MIDO5TAB4 PO (16:59)
== END 2023-07-12 21:07 | disposition home health service (06) | DRG 194 ==
LOC: SED 18:54 → STU 22:35 → SMU 07-10 14:10
PROVIDERS: ADMIT Preventive Medicine Preventive Medicine/Occupational Environmental Medicine; ATTEND Preventive Medicine Preventive Medicine/Occupational Environmental Medicine
DX: I13.0 Hypertensive heart and chronic kidney disease with heart failure and stage 1 through stage 4 chronic kidney disease, or unspecified chronic kidney disease (principal); J96.21 Acute and chronic respiratory failure with hypoxia; D69.6 Thrombocytopenia, unspecified; E44.1 Mild protein-calorie malnutrition; E83.41 Hypermagnesemia; E83.51 Hypocalcemia; E87.3 Alkalosis; I48.91 Unspecified atrial fibrillation; I27.20 Pulmonary hypertension, unspecified; I50.33 Acute on chronic diastolic (congestive) heart failure; J44.0 Chronic obstructive pulmonary disease with (acute) lower respiratory infection; D64.9 Anemia, unspecified; E87.6 Hypokalemia; N18.9 Chronic kidney disease, unspecified; Z20.822 Contact with and (suspected) exposure to COVID-19; I25.10 Atherosclerotic heart disease of native coronary artery without angina pectoris; E88.09 Other disorders of plasma-protein metabolism, not elsewhere classified; Z79.899 Other long term (current) drug therapy; Z95.3 Presence of xenogenic heart valve; Z95.810 Presence of automatic (implantable) cardiac defibrillator; E83.52 Hypercalcemia; Z68.21 Body mass index [BMI] 21.0-21.9, adult
CPT/HCPCS: 36415; 71045; 80048; 80053; 83735; 83880; 84100; 84484; 85025; 85610; 85651; 85730; 87040; 93005; 93306; 94760; 96374; 97110-GP; 97116-GP; 97530-GP; 99291; G0378; J1120; J1940; J1956

== ENCOUNTER 2023-09-24 19:41 | Inpatient (IN) | payer MEDICAID ==
[~2023-09-24] VITALS: Ht 162.6 cm; Wt 57.6 kg
[~2023-09-24 19:41] MED LIST changes: -ACET-73 PO; -AMLO2.5T50 PO; +CARV6.2554 PO; -COR6.25 PO; +LEVO250T73 PO; +MIDO5TAB4 PO; -NEU300 PO; -POTA-217 PO; +POTA8TAB66 PO; +RIVA15TA PO; -RIVA20TA PO
[2023-09-24 19:57] VITALS: BP_SYST 110; PULSE 70; RESP 16; TEMP 98.9; O2SAT 100
[2023-09-24 20:52] LABS: HEMATOCRIT 22.6 % (36-48); HEMOGLOBIN 7.4 g/dL (12.0-16.0); MEAN CORPUSCULAR HEMOGLOBIN 26 pg (27-31); MEAN CORPUSCULAR HGB CONC 33 % (32-36); MEAN CORPUSCULAR VOLUME 78 fL (79.0-98.0); PLATELET COUNT (AUTO) 129 K/uL (130-430); RED CELL DISTRIBUTION WIDTH 17.4 % (9.0-15.0); WHITE BLOOD COUNT (AUTO) 5.7 K/uL (4.8-10.8)
[2023-09-24 21:31] LABS: ALANINE AMINOTRANSFERASE 34 U/L (12-78); ALBUMIN 2.7 g/dL (3.4-4.8); ASPARTATE AMINOTRANSFERASE 64 U/L (10-37); BILIRUBIN,DIRECT 0.2 mg/dL (0.0-0.3); CALCIUM 8.5 mg/dL (8.4-11.0); CREATININE 1.41 mg/dL (0.55-1.30); GLUCOSE 144 mg/dL (74-106); LIPASE 23 U/L (16-77); POTASSIUM 3.9 mmol/L (3.5-5.1); TOTAL BILIRUBIN 0.4 mg/dL (0.0-1.0); TOTAL PROTEIN, SERUM 7.1 g/dL (6.4-8.3); UREA NITROGEN, BLOOD 42 mg/dL (8-21)
[2023-09-24 21:41] LABS: ANISOCYTOSIS 1+; ATYPICAL LYMPHOCYTES % 10 % (0-0); BAND % (MANUAL) 2 % (0-6); BASOPHILS % (MANUAL) 0 % (0-2); EOSINOPHILS % (MANUAL) 0 % (0-7); LYMPHOCYTES % (MANUAL) 39 % (20-46); MONOCYTES % (MANUAL) 3 % (0-11); OVALOCYTES FEW
[2023-09-24 21:42] LABS: ANION GAP 6 (5-15); CHLORIDE 97 mmol/L (98-107); PLATELET ESTIMATE DECREASED (ADEQUATE); SODIUM SERUM 146 mmol/L (136-145)
[2023-09-24 21:44] LABS: CARBON DIOXIDE 43 mmol/L (23-29)
[2023-09-24 22:58] LABS: BILIRUBIN,URINE NEGATIVE (NEGATIVE); CLARITY/URINE CLEAR (CLEAR); COLOR,URINE YELLOW (YELLOW); GLUCOSE,URINE NEGATIVE (NEGATIVE); KETONES,URINE NEGATIVE (NEGATIVE); LEUKOCYTE ESTERASE ,URINE NEGATIVE (NEGATIVE); NITRITE, URINE NEGATIVE (NEGATIVE); PROTEIN URINE 1+ (NEGATIVE); UROBILINOGEN,URINE 0.2 (0.2-1.0)
[2023-09-24 23:04] LABS: BLOOD, URINE TRACE (NEGATIVE)
[2023-09-24 23:16] LABS: BACTERIA,URINE RARE /HPF (None Seen); RBC,URINE 0-3 /HPF (0-3); WBC,URINE 0-3 /HPF (0-3)
[2023-09-25] MEDS: NS 500 ML IV ONE (00:14)
[2023-09-25 01:17] VITALS: BP_SYST 104; PULSE 70; RESP 18; TEMP 97.8; O2SAT 100
[2023-09-25 07:53] VITALS: BP_SYST 109; PULSE 70; RESP 24; TEMP 98.5; O2SAT 97
[2023-09-25 11:22] VITALS: BP_SYST 130; PULSE 71; RESP 15; TEMP 98.1; O2SAT 99
[2023-09-25] MEDS ORDERED: HYDROcodone/ACETAMIN 5-325 MG TAB (NORCO/ VICODIN) PO PRN (13:15)
[2023-09-25] MEDS ORDERED: HYDROcodone/ACETAMIN 10-325 MG TAB PO PRN (13:15)
[2023-09-25] MEDS ORDERED: ONDANSETRON HCL 4 MG/2 ML VIAL IVP PRN (13:15)
[2023-09-25] MEDS ORDERED: NALOXONE HCL 0.4 MG/ML AMP (NARCAN) IVP PRN ×2 (13:15)
[2023-09-25] MEDS ORDERED: ACETAMINOPHEN 325 MG TABLET PO PRN (13:45)
[2023-09-25] MEDS: FUROSEMIDE 40 MG TABLET PO ONE (13:56)
[2023-09-25] MEDS: POTASSIUM CHLORIDE 8 MEQ TABLET.ER PO ONE (13:57)
[2023-09-25 14:13] LABS: BASOPHILS % (AUTO) 0.4 % (0.0-2.0); EOSINOPHILS % (AUTO) 0.3 % (0.0-4.0); HEMATOCRIT 25.6 % (36-48); LYMPHOCYTES # (AUTO) 2.2 K/uL (1.0-5.5); MEAN CORPUSCULAR HEMOGLOBIN 25 pg (27-31); MEAN CORPUSCULAR HGB CONC 31 % (32-36); MEAN CORPUSCULAR VOLUME 80 fL (79.0-98.0); MONOCYTES # (AUTO) 0.4 K/uL (0.0-1.0); MONOCYTES % (AUTO) 7.6 % (1.7-9.3); NEUTROPHILS # (AUTO) 3.1 K/uL (1.8-7.7); PLATELET COUNT (AUTO) 142 K/uL (130-430); RED BLOOD CELL COUNT(AUTO) 3.22 MIL/uL (4.2-6.2); RED CELL DISTRIBUTION WIDTH 17.4 % (9.0-15.0); WHITE BLOOD COUNT (AUTO) 5.7 K/uL (4.8-10.8)
[2023-09-25 14:16] LABS: ANION GAP 3 (5-15); CALCIUM 8.6 mg/dL (8.4-11.0); CHLORIDE 103 mmol/L (98-107); CREATININE 1.36 mg/dL (0.55-1.30); GLUCOSE 196 mg/dL (74-106); POTASSIUM 3.9 mmol/L (3.5-5.1); SODIUM SERUM 148 mmol/L (136-145); UREA NITROGEN, BLOOD 41 mg/dL (8-21)
[2023-09-25 14:19] LABS: NEUTROPHILS % (AUTO) 53.7 % (40.0-70.0)
[2023-09-25 14:24] LABS: CARBON DIOXIDE 42 mmol/L (23-29)
[2023-09-25] MEDS: SACUBITRIL/VALSARTAN 24 MG-26 MG 1 TABLET PO SCH (15:10)
[2023-09-25] MEDS: RIVAROXABAN 15 MG TABLET PO ONE (15:10)
[2023-09-25] MEDS: NORMAL SALINE 5 ML DISP.SYRIN IVF SCH (15:11)
[2023-09-25 16:04] VITALS: BP_SYST 125; PULSE 72; RESP 15; TEMP 98.2; O2SAT 99
[2023-09-25 20:00] VITALS: BP_SYST 132; PULSE 70; RESP 18; TEMP 97.8; O2SAT 94
[2023-09-25] MEDS: CARVEDILOL 6.25 MG TABLET (COREG) PO SCH (20:15)
[2023-09-25 22:17] VITALS: O2SAT 98
[2023-09-26] VITALS: BP_SYST 137; PULSE 65; RESP 16; TEMP 101.7; O2SAT 97
[2023-09-26] MEDS: ACETAMINOPHEN 325 MG TABLET PO PRN (00:30)
[2023-09-26] MEDS ORDERED: HEPARIN 25,000 UNITS/D5W 250ML 250 ML IV PRN (00:45)
[2023-09-26] MEDS ORDERED: CARVEDILOL 6.25 MG TABLET (COREG) PO SCH (00:45)
[2023-09-26] MEDS: ATORVASTATIN 10 MG TABLET PO SCH (01:10)
[2023-09-26 05:44] LABS: BASOPHILS % (AUTO) 0.2 % (0.0-2.0); HEMATOCRIT 27.7 % (36-48); HEMOGLOBIN 8.5 g/dL (12.0-16.0); LYMPHOCYTES # (AUTO) 5.6 K/uL (1.0-5.5); LYMPHOCYTES % (AUTO) 54.9 % (20.5-51.5); MEAN CORPUSCULAR HEMOGLOBIN 25 pg (27-31); MEAN CORPUSCULAR HGB CONC 31 % (32-36); MEAN CORPUSCULAR VOLUME 80 fL (79.0-98.0); MONOCYTES # (AUTO) 0.6 K/uL (0.0-1.0); MONOCYTES % (AUTO) 6.3 % (1.7-9.3); NEUTROPHILS # (AUTO) 3.9 K/uL (1.8-7.7); PLATELET COUNT (AUTO) 168 K/uL (130-430); RED BLOOD CELL COUNT(AUTO) 3.47 MIL/uL (4.2-6.2); RED CELL DISTRIBUTION WIDTH 17.9 % (9.0-15.0); WHITE BLOOD COUNT (AUTO) 10.2 K/uL (4.8-10.8)
[2023-09-26 06:06] LABS: ALANINE AMINOTRANSFERASE 36 U/L (12-78); ANION GAP 4 (5-15); ASPARTATE AMINOTRANSFERASE 58 U/L (10-37); CALCIUM 8.6 mg/dL (8.4-11.0); CHLORIDE 105 mmol/L (98-107); CREATININE 1.64 mg/dL (0.55-1.30); GLUCOSE 157 mg/dL (74-106); PHOSPHORUS 4.1 mg/dL (2.7-4.5); POTASSIUM 4.4 mmol/L (3.5-5.1); SODIUM SERUM 149 mmol/L (136-145); TOTAL BILIRUBIN 0.5 mg/dL (0.0-1.0); TOTAL PROTEIN, SERUM 7.9 g/dL (6.4-8.3); UREA NITROGEN, BLOOD 51 mg/dL (8-21)
[2023-09-26 06:35] LABS: NEUTROPHILS % (AUTO) 38.6 % (40.0-70.0)
[2023-09-26 06:40] LABS: CARBON DIOXIDE 40 mmol/L (23-29)
[2023-09-26 08:15] VITALS: BP_SYST 127; PULSE 72; RESP 22; TEMP 100.9; O2SAT 99
[2023-09-26] MEDS: POTASSIUM CHLORIDE 8 MEQ TABLET.ER PO SCH (09:00)
[2023-09-26] MEDS: FUROSEMIDE 40 MG TABLET PO SCH (09:00)
[2023-09-26] MEDS: RIVAROXABAN 15 MG TABLET PO SCH (09:23)
[2023-09-26 11:08] VITALS: BP_SYST 131; PULSE 72; RESP 16; TEMP 97.7; O2SAT 99
[2023-09-26 15:07] VITALS: BP_SYST 141; PULSE 79; RESP 14; TEMP 97.9; O2SAT 97
[2023-09-26] MEDS: CEFEPIME 1 GM in D5W 50 ML IV SCH (15:22)
[2023-09-26 20:10] VITALS: BP_SYST 95; PULSE 60; RESP 20; TEMP 101.8; O2SAT 99
[2023-09-26 21:00] VITALS: O2SAT 95
[2023-09-26] MEDS: NS 500 ML IV ONE (22:55)
[2023-09-27] VITALS (51 sets, daily range): BP systolic 63–159; PULSE 60–80; RESP 13–33; TEMP 97.5–102.6; O2SAT 60–100
[2023-09-27 00:55] LABS: BILIRUBIN,URINE NEGATIVE (NEGATIVE); BLOOD, URINE 1+ (NEGATIVE); CLARITY/URINE CLOUDY (CLEAR); COLOR,URINE YELLOW (YELLOW); GLUCOSE,URINE NEGATIVE (NEGATIVE); KETONES,URINE NEGATIVE (NEGATIVE); LEUKOCYTE ESTERASE ,URINE 2+ (NEGATIVE); NITRITE, URINE NEGATIVE (NEGATIVE); PROTEIN URINE 1+ (NEGATIVE); UROBILINOGEN,URINE 0.2 (0.2-1.0)
[2023-09-27 01:23] LABS: BACTERIA,URINE MANY /HPF (None Seen); WBC,URINE 20-50 /HPF (0-3)
[2023-09-27] MEDS: D5/0.45 NS 1,000 ML IV SCH (01:41)
[2023-09-27] MEDS: ACETAMINOPHEN 650 MG SUPP.RECT RC PRN (01:42)
[2023-09-27] MEDS: AZITHROMYCIN 500 MG/VIAL (ZITHROMAX) IV ONE (03:29)
[2023-09-27 04:41] LABS: BASOPHILS % (AUTO) 0.1 % (0.0-2.0); HEMATOCRIT 25.1 % (36-48); HEMOGLOBIN 7.8 g/dL (12.0-16.0); LYMPHOCYTES # (AUTO) 5.4 K/uL (1.0-5.5); MEAN CORPUSCULAR HEMOGLOBIN 25 pg (27-31); MEAN CORPUSCULAR HGB CONC 31 % (32-36); MEAN CORPUSCULAR VOLUME 81 fL (79.0-98.0); MONOCYTES # (AUTO) 0.7 K/uL (0.0-1.0); MONOCYTES % (AUTO) 7.7 % (1.7-9.3); NEUTROPHILS # (AUTO) 3.5 K/uL (1.8-7.7); NEUTROPHILS % (AUTO) 36.2 % (40.0-70.0); PLATELET COUNT (AUTO) 121 K/uL (130-430); RED BLOOD CELL COUNT(AUTO) 3.11 MIL/uL (4.2-6.2); RED CELL DISTRIBUTION WIDTH 18.1 % (9.0-15.0); WHITE BLOOD COUNT (AUTO) 9.6 K/uL (4.8-10.8)
[2023-09-27] MEDS: AZITHROMYCIN 500 MG in NS 250 ML IV ONE (04:56)
[2023-09-27 06:07] LABS: ALANINE AMINOTRANSFERASE 44 U/L (12-78); ALBUMIN 2.4 g/dL (3.4-4.8); ANION GAP 5 (5-15); ASPARTATE AMINOTRANSFERASE 88 U/L (10-37); CALCIUM 7.4 mg/dL (8.4-11.0); CARBON DIOXIDE 39 mmol/L (23-29); CHLORIDE 107 mmol/L (98-107); CREATININE 2.96 mg/dL (0.55-1.30); GLUCOSE 205 mg/dL (74-106); PHOSPHORUS 7.1 mg/dL (2.7-4.5); POTASSIUM 4.4 mmol/L (3.5-5.1); SODIUM SERUM 151 mmol/L (136-145); TOTAL BILIRUBIN 0.4 mg/dL (0.0-1.0); TOTAL PROTEIN, SERUM 6.7 g/dL (6.4-8.3); UREA NITROGEN, BLOOD 88 mg/dL (8-21)
[2023-09-27] MEDS: NACL 0.9% 1,000 ML IV ONE (09:15)
[2023-09-27] MEDS: LR 1,000 ML IV SCH (09:15)
[2023-09-27] MEDS: CALCIUM GLUC 2 GM/100ML-NACL 100 ML IV ONE (12:52)
[2023-09-27] MEDS ORDERED: SODIUM BICARBONATE 8.4% JECT 50 MEQ/50 ML SYRINGE ONE (14:00)
[2023-09-27] MEDS ORDERED: NOREPINEPHRINE BITARTRATE 4 MG in NS 246 ML IV PRN (15:15)
[2023-09-27] MEDS: NOREPINEPHRINE 4 MG/4 ML VIAL IV ONE (15:25)
[2023-09-27] MEDS ORDERED: NOREPINEPHRINE BITARTRATE 4 MG in D5W 246 ML IV PRN (15:30)
[2023-09-27 16:54] LABS: ABG O2 SAT% ESTIMATE 99.3 % (94.0-100.0); BLOOD GAS HCO3 21.5 mmol/L (21.0-27.0); BLOOD GAS PCO2 46.2 mmHg (35.0-45.0); BLOOD GAS PO2 210.3 mmHg (75.0-100.0)
[2023-09-27 16:57] LABS: BLOOD GAS PH 7.285 (7.350-7.450)
[2023-09-27] MEDS: NOREPINEPHRINE BITARTRATE 4 MG in D5W 246 ML IV PRN (19:43)
[2023-09-27] MEDS ORDERED: AZITHROMYCIN 250 MG in NS 250 ML IV SCH (21:00)
[2023-09-27] MEDS: EPINEPHrine HCL 5 MG in NS 245 ML IV PRN (21:53)
[2023-09-27] MEDS: NOREPINEPHRINE BITARTRATE 16 MG in D5W 234 ML IV PRN (22:09)
[2023-09-28] VITALS (43 sets, daily range): BP systolic 37–149; PULSE 60–85; RESP 16–31; TEMP 98.7–103.2; O2SAT 77–100
[2023-09-28 05:24] LABS: ERYTHROCYTE SEDIMENTATION RATE 41 MM/HR (0-20)
[2023-09-28 06:02] LABS: BASOPHILS # (AUTO) 0.1 K/uL (0.0-0.2); BASOPHILS % (AUTO) 0.4 % (0.0-2.0); HEMOGLOBIN 8.3 g/dL (12.0-16.0); LYMPHOCYTES % (AUTO) 49.4 % (20.5-51.5); MEAN CORPUSCULAR HEMOGLOBIN 24 pg (27-31); MEAN CORPUSCULAR HGB CONC 31 % (32-36); MEAN CORPUSCULAR VOLUME 80 fL (79.0-98.0); MONOCYTES # (AUTO) 0.7 K/uL (0.0-1.0); MONOCYTES % (AUTO) 3.3 % (1.7-9.3); NEUTROPHILS # (AUTO) 9.5 K/uL (1.8-7.7); NEUTROPHILS % (AUTO) 46.9 % (40.0-70.0); PLATELET COUNT (AUTO) 134 K/uL (130-430); RED BLOOD CELL COUNT(AUTO) 3.39 MIL/uL (4.2-6.2); RED CELL DISTRIBUTION WIDTH 17.5 % (9.0-15.0); WHITE BLOOD COUNT (AUTO) 20.3 K/uL (4.8-10.8)
[2023-09-28 06:15] LABS: ALANINE AMINOTRANSFERASE 104 U/L (12-78); ALBUMIN 2.1 g/dL (3.4-4.8); ANION GAP 10 (5-15); ASPARTATE AMINOTRANSFERASE 209 U/L (10-37); CALCIUM 7.7 mg/dL (8.4-11.0); CARBON DIOXIDE 30 mmol/L (23-29); CHLORIDE 106 mmol/L (98-107); CREATININE 4.38 mg/dL (0.55-1.30); GLUCOSE 238 mg/dL (74-106); PHOSPHORUS 7.1 mg/dL (2.7-4.5); SODIUM SERUM 146 mmol/L (136-145); TOTAL BILIRUBIN 0.5 mg/dL (0.0-1.0); TOTAL PROTEIN, SERUM 6.3 g/dL (6.4-8.3)
[2023-09-28 06:21] LABS: POTASSIUM 5.9 mmol/L (3.5-5.1); UREA NITROGEN, BLOOD 102 mg/dL (8-21)
[2023-09-28] MEDS: AZITHROMYCIN 250 MG in NS 250 ML IV SCH (09:18)
[2023-09-28] MEDS: COMMUNICATION ORDER XX ONE (09:18)
[2023-09-28] MEDS: CALCIUM GLUC 2 GM/100ML-NACL 100 ML IV ONE (09:43)
[2023-09-28] MEDS: SODIUM ZIRCONIUM CYCLOSILICATE 10 GM POWD.PACK PO ONE (09:43)
[2023-09-28 11:26] LABS: INR 4.6 (0.8-1.2); PROTHROMBIN TIME 44.5 SECS (9.5-12.5)
[2023-09-28] MEDS ORDERED: MORPHINE SULFATE IN 0.9 % NACL 100 ML IV PRN (15:00)
[2023-09-28] MEDS ORDERED: NALOXONE HCL 0.4 MG/ML AMP (NARCAN) IVP PRN (15:00)
[2023-09-28] MEDS ORDERED: LORazepam 2 MG/ML VIAL IVP PRN (15:15)
[2023-09-28] MEDS: LORazepam 2 MG/ML VIAL IVP PRN (15:27)
[2023-09-28] MEDS: MORPHINE 4 MG INJ. 4 MG/ML VIAL IVP ONE (15:55)
[2023-09-28] MEDS ORDERED: MEROPENEM 500 MG IVPB PREMIX 50 ML IV SCH (21:00)
[2023-09-28] MEDS ORDERED: LINEZOLID 300 ML IV SCH (21:00)
[2023-09-28] MEDS ORDERED: MEROPENEM 1 GM in NS 100 ML IV SCH (22:00)
== END 2023-09-28 16:12 | DRG 720 ==
LOC: SED 19:41 → STU 23:21 → SMU 09-27 15:10 → SIC 09-27 15:11
PROVIDERS: ADMIT Preventive Medicine Preventive Medicine/Occupational Environmental Medicine; ATTEND Preventive Medicine Preventive Medicine/Occupational Environmental Medicine
PROC: 0BH17EZ Insertion of Endotracheal Airway into Trachea, Via Natural or Artificial Opening (ICD-10-PCS; principal; 2023-09-27)
PROC: 5A1945Z Respiratory Ventilation, 24-96 Consecutive Hours (ICD-10-PCS; 2023-09-27)
DX: A41.9 Sepsis, unspecified organism (principal); J96.21 Acute and chronic respiratory failure with hypoxia; R65.21 Severe sepsis with septic shock; J69.0 Pneumonitis due to inhalation of food and vomit; I21.4 Non-ST elevation (NSTEMI) myocardial infarction; G93.41 Metabolic encephalopathy; E43 Unspecified severe protein-calorie malnutrition; N17.9 Acute kidney failure, unspecified; D69.6 Thrombocytopenia, unspecified; E83.39 Other disorders of phosphorus metabolism; E87.0 Hyperosmolality and hypernatremia; E83.41 Hypermagnesemia; D64.9 Anemia, unspecified; Z20.822 Contact with and (suspected) exposure to COVID-19; E83.51 Hypocalcemia; E83.52 Hypercalcemia; E88.09 Other disorders of plasma-protein metabolism, not elsewhere classified; E87.1 Hypo-osmolality and hyponatremia; E87.5 Hyperkalemia; F03.90 Unspecified dementia, unspecified severity, without behavioral disturbance, psychotic disturbance, mood disturbance, and anxiety; I46.9 Cardiac arrest, cause unspecified; R74.01 Elevation of levels of liver transaminase levels; R73.9 Hyperglycemia, unspecified; I25.10 Atherosclerotic heart disease of native coronary artery without angina pectoris; I48.91 Unspecified atrial fibrillation; I50.9 Heart failure, unspecified; N18.9 Chronic kidney disease, unspecified; N39.0 Urinary tract infection, site not specified; Z95.0 Presence of cardiac pacemaker; Z88.8 Allergy status to other drugs, medicaments and biological substances; Z79.01 Long term (current) use of anticoagulants; Z79.899 Other long term (current) drug therapy; Z95.2 Presence of prosthetic heart valve; Z68.21 Body mass index [BMI] 21.0-21.9, adult; J18.9 Pneumonia, unspecified organism
CPT/HCPCS: 36415; 36600; 71045; 76770; 80048; 80053; 80076; 81000; 81001; 81015; 82803; 83605; 83690; 83735; 83880; 84100; 84302; 84484; 85007; 85025; 85027; 85610; 85651; 85730; 86870; 86886; 86900; 86901; 87040; 87070; 87086; 87186; 87205; 92610-GN; 93005; 94002; 94003; 94640; 97112-GP; 97530-GP; 99291; G0378; J0171; J0456; J0692; J2020; J2060; J2185; J2270; J7050; J7060